=== PATIENT | male | born 1995 | race Caucasian/White ===

== ENCOUNTER 2019-12-05 06:51 | Emergency (ER) | payer MEDICAID ==
[~2019-12-05] VITALS: Ht 172.7 cm; Wt 72.6 kg
[2019-12-05 07:11] VITALS: Ht 172.7 cm; Wt 72.6 kg
[2019-12-05 07:52] LABS: BASOPHIL % 0.3 % (0-2); PLATELET COUNT 238 x10^3mcL (130-400); RED CELL DISTRIBUTION WIDTH 12.6 % (11.5-14.5)
[2019-12-05 08:02] LABS: CALCIUM 9.6 mg/dL (8.5-10.1); CARBON DIOXIDE 28.4 mmol/L (21-32); CHLORIDE SERUM 103 mmol/L (98-107); CREATININE SERUM 1.1 mg/dL (0.7-1.3); GFR1 > 60 mL/min; GLUCOSE SERUM 108 mg/dL (74-106); POTASSIUM SERUM 3.6 mmol/L (3.5-5.1); SODIUM SERUM 139 mmol/L (136-145)
[2019-12-05 08:07] LABS: ALBUMIN 4.4 g/dL (3.4-5.0); ALKALINE PHOSPHATASE 85 U/L (46-116); ALT/SGPT 40 U/L (16-63); AST/SGOT 12 U/L (15-37); BILIRUBIN TOTAL 3.78 mg/dL (0.20-1.00); LIPASE 87 IU/L (73-393); TOTAL PROTEIN, SERUM 7.5 g/dL (6.4-8.2)
[2019-12-05 08:40] LABS: microscopic required? NO
[2019-12-05 08:47] LABS: UA SPECIFIC GRAVITY 1.015 (1.005-1.035); urine erythrocyte NEGATIVE (NEGATIVE)
[2019-12-05 08:56] VITALS: BP 110/60
== END 2019-12-05 08:56 | disposition home or self-care (01) ==
LOC: ED 06:51
PROVIDERS: Emergency Medicine
DX: F12.188 Cannabis abuse with other cannabis-induced disorder (principal); R10.815 Periumbilic abdominal tenderness; R11.10 Vomiting, unspecified; Z20.828 Contact with and (suspected) exposure to other viral communicable diseases
CPT/HCPCS: J2060; J2405; U0003-CS